=== PATIENT | female | born 1995 | race African-American/Black ===

== ENCOUNTER 2019-03-13 11:01 | Emergency (ER) | payer SELFPAY ==
[~2019-03-13] VITALS: Ht 165.1 cm; Wt 86.0 kg
[2019-03-13] MEDS ORDERED: IBUPROFEN 800MG TABLET PO ONE (12:30)
[2019-03-13 12:42] VITALS: BP 122/75
== END 2019-03-13 14:35 | disposition home or self-care (01) ==
LOC: ER 11:01
DX: R07.81 Pleurodynia (principal); J45.909 Unspecified asthma, uncomplicated; V49.88XA Car occupant (driver) (passenger) injured in other specified transport accidents, initial encounter; Y93.89 Activity, other specified; Y92.89 Other specified places as the place of occurrence of the external cause; Y99.8 Other external cause status
CPT/HCPCS: 71100; 81025; 99283